=== PATIENT | male | born 1975 | race Caucasian/White ===

== ENCOUNTER 2018-11-28 14:46 | Emergency (ER) | payer OTHER ==
[2018-11-28 15:06] VITALS: BP 138/77
--- NOTE | 2018-11-28 15:27 | PHYS DOC ---
Past History Past Medical History: No Pertinent History Past Surgical History: No Surgical History Smoking: Non-smoker Alcohol Use: Occasionally Drug Use: None Adult General Chief Complaint Chief Complaint: BODY FLUID EXPOSURE HPI HPI Patient is a 43-year-old male presents with blood exposure. He was at a gas station, using the gas pump and noticed blood on his hand after using the gas pump. He promptly washed his hands. Patient is concerned because he chews his fingernails. This happened 2 days ago. Patient was moving from [place] to [place] to start the [employer] at [employer]. Patient denies any symptoms.[] Review of Systems Review of Systems Constitutional: Denies fever or chills [] Eyes: Denies change in visual acuity, redness, or eye pain [] HENT: Denies nasal congestion or sore throat [] Respiratory: Denies cough or shortness of breath [] Cardiovascular: No chest pain or palpitations[] GI: Denies abdominal pain, nausea, vomiting, bloody stools or diarrhea [] : Denies dysuria or hematuria [] Musculoskeletal: Denies back pain or joint pain [] Integument: Denies rash or skin lesions [] Neurologic: Denies headache, focal weakness or sensory changes [] Endocrine: Denies polyuria or polydipsia [] All other systems were reviewed and found to be within normal limits, except as documented in this note. Physical Exam Physical Exam Constitutional: Well developed, well nourished, no acute distress, non-toxic appearance. [] HENT: Normocephalic, atraumatic, bilateral external ears normal, oropharynx moist, no oral exudates, nose normal. [] Eyes: PERRLA, EOMI, conjunctiva normal, no discharge. [] Neck: Normal range of motion, no tenderness, supple, no stridor. [] Cardiovascular:Heart rate regular rhythm, no murmur [] Lungs & Thorax: Bilateral breath sounds clear to auscultation [] Abdomen: Not examined[] Skin: Warm, dry, no erythema, no rash. [] Back: No tenderness, no CVA tenderness. [] Extremities: Bilateral hands show fingernails chewed down to the nailbed. There are no open wounds. No tenderness, no cyanosis, no clubbing, ROM intact, no edema. [] Neurologic: Alert and oriented X 3, normal motor function, normal sensory function, no focal deficits noted. [] Psychologic: Affect normal, judgement normal, mood normal. [] EKG EKG [] Radiology/Procedures Radiology/Procedures [] Course & Med Decision Making Course & Med Decision Making Pertinent Labs and Imaging studies reviewed. (See chart for details) ED course and medical decision making: It appears that with a cutaneous exposure and if the source was HIV positive, the risk is 0.09% for HIV transmission. Patient does desire HIV postexposure prophylaxis discussed risks and benefits with the patient. He was able to state these in his own words. Initial dose of the medication is being given to the patient along with a prescription for a 28 day course.[] Dragon Disclaimer Dragon Disclaimer This electronic medical record was generated, in whole or in part, using a voice recognition dictation system. Departure Departure: Impression: Primary Impression: Exposure to blood or body fluid Disposition: HOME, SELF-CARE Condition: IMPROVED Referrals: PCP,NO (PCP) Patient Instructions: Body Fluid Exposure Additional Instructions: Follow-up with your regular doctor on toast tomorrow. Take the medication as prescribed. Return to the ER if any concerns. Scripts Emtricitabine/Tenofovir (TRUVADA 200 MG-300 MG TABLET) 1 Each Tablet 1 EACH PO DAILY for blood exposure for 28 Days, #28 TAB Prov: TRAY MURDOCK DO 11/28/18 Raltegravir Potassium (ISENTRESS) 400 Mg Tablet 400 MG PO BID for blood exposure for 28 Days, #56 TAB Prov: TRAY MURDOCK DO 11/28/18 TRAY MURDOCK DO Nov 28, 2018 15:27
[2018-11-28 15:35] LABS: BASO % 1 % (0-3); EOS # 0.1 x10^3/uL (0.0-0.7); EOS % 1 % (0-3); HEMATOCRIT 47.4 % (39.0-53.0); HEMOGLOBIN 16.2 g/dL (13.0-17.5); LYMPH # 1.5 x10^3/uL (1.0-4.8); LYMPH % 21 % (24-48); MEAN CORPUSCULAR HEMOGLOBIN 29 pg (25-35); MEAN CORPUSCULAR HGB CONC 34 g/dL (31-37); MEAN CORPUSCULAR VOLUME 85 fL (79-100); MONO # 0.4 x10^3/uL (0.0-1.1); MONO % 6 % (0-9); NEUT # 5.3 x10^3uL (1.8-7.7); NEUT % 72 % (31-73); PLATELET COUNT 279 x10^3/uL (140-400); RED BLOOD COUNT 5.59 x10^6/uL (4.30-5.70); RED CELL DISTRIBUTION WIDTH 12.9 % (11.5-14.5); WHITE BLOOD COUNT 7.3 x10^3/uL (4.0-11.0)
[2018-11-28] MEDS ORDERED: RALT400T PO (15:39)
[2018-11-28] MEDS ORDERED: EMTR1TAB8 PO (15:39)
[2018-11-28 15:52] LABS: ALBUMIN 4.4 g/dL (3.4-5.0); DIRECT BILIRUBIN 0.2 mg/dL (0.0-0.2); TOTAL BILIRUBIN 1.2 mg/dL (0.2-1.0); TOTAL PROTEIN 7.6 g/dL (6.4-8.2)
[2018-11-28 15:55] LABS: ALBUMIN 4.4 g/dL (3.4-5.0); ALBUMIN/GLOBULIN RATIO 1.6 (1.0-1.7); CALCIUM 9.8 mg/dL (8.5-10.1); CREATININE 0.9 mg/dL (0.7-1.3); POTASSIUM 3.9 mmol/L (3.5-5.1); TOTAL BILIRUBIN 1.2 mg/dL (0.2-1.0); TOTAL PROTEIN 7.2 g/dL (6.4-8.2)
[2018-11-28] MEDS ORDERED: EMTRICITAB/TENOFOVIR 200/300MG TABLET. PO ONE (16:00)
[2018-11-28] MEDS ORDERED: RALTEGRAVIR 400 MG TABLET. PO ONE (16:00)
== END 2018-11-28 16:16 | disposition home or self-care (01) ==
LOC: ER 14:46
DX: Z77.22 Contact with and (suspected) exposure to environmental tobacco smoke (acute) (chronic) (principal)
CPT/HCPCS: 36415; 80053; 80076; 85025; 86703; 99284

== ENCOUNTER 2019-06-05 11:33 | Emergency (ER) | payer OTHER ==
[~2019-06-05 11:33] MED LIST: EMTR1TAB8 PO; RALT400T PO
[2019-06-05 11:50] VITALS: BP 159/90
--- NOTE | 2019-06-05 12:33 | PHYS DOC ---
Past History Past Medical History: No Pertinent History Past Surgical History: No Surgical History Smoking: Non-smoker Alcohol Use: None Drug Use: None Adult General Chief Complaint Chief Complaint: OTHER COMPLAINTS [facility] Patient is a 44-year-old male who states was seen here 6 months ago for blood product exposure on his finger. Patient will treat prophylaxis the HIV medication, he was tested for HIV STATUS at the time, was negative. Patient was told to follow with in 6 months for reevaluation. Patient came in today asking to have his blood CHECKED AGAIN to check his HIV status again. Patient denies any fever, no trouble breathing, no chest pain, no symptom. aLL OTHER ros IS NEGATIVE UNLESS OTHERWISE NOTED IN hpi Review of Systems Review of Systems See above Allergies Allergies Allergies Coded Allergies Type Severity Reaction Last Updated Verified ceftriaxone Allergy Unknown 11/28/18 Yes levofloxacin Allergy Unknown 11/28/18 Yes Physical Exam Physical Exam See above Constitutional: Well developed, well nourished, no acute distress, non-toxic appearance. [] HENT: Normocephalic, atraumatic, bilateral external ears normal, oropharynx moist, no oral exudates, nose normal. [] Eyes: PERRLA, EOMI, conjunctiva normal, no discharge. [] Neck: Normal range of motion, no tenderness, supple, no stridor. [] Cardiovascular:Heart rate regular rhythm, no murmur [] Lungs & Thorax: Bilateral breath sounds clear to auscultation [] Abdomen: Bowel sounds normal, soft, no tenderness, no masses, no pulsatile masses. [] Skin: Warm, dry, no erythema, no rash. [] Back: No tenderness, no CVA tenderness. [] Extremities: No tenderness, no cyanosis, no clubbing, ROM intact, no edema. [] Neurologic: Alert and oriented X 3, normal motor function, normal sensory function, no focal deficits noted. [] Psychologic: Affect normal, judgement normal, mood normal. [] Current Patient Data Vital Signs Vital Signs Date Time Temp Pulse Resp B/P (MAP) Pulse Ox O2 Delivery O2 Flow Rate FiO2 06/05/19 11:50 71 18 100 Room Air EKG EKG [] Radiology/Procedures Radiology/Procedures [] Course & Med Decision Making Course & Med Decision Making Pertinent Labs and Imaging studies reviewed. (See chart for details) [] Dragon Disclaimer Dragon Disclaimer This electronic medical record was generated, in whole or in part, using a voice recognition dictation system. Departure Departure: Impression: Primary Impression: Encounter for blood test Disposition: HOME, SELF-CARE Condition: STABLE Referrals: PCP,UNKNOWN (PCP) follow up with your doctor Patient Instructions: Blood Tests Additional Instructions: Thank you for visiting our Emergency Department. We appreciate you trusting us with your care. If any additional problems come up don't hesitate to return to visit us. Please follow up with your primary care provider so they can plan additional care if needed and know about the problem that you had. If symptoms worsen come back to the Emergency Department. Any concerning symptoms that start such as chest pain, shortness of air, weakness or numbness on one side of the body, running high fevers or any other concerning symptoms return to the ER. AMY DESAI DO Jun 05, 2019 12:33
== END 2019-06-05 12:30 | disposition home or self-care (01) ==
LOC: ER 11:33
DX: Z01.83 Encounter for blood typing (principal); Z88.1 Allergy status to other antibiotic agents
CPT/HCPCS: 36415; 86703; 99283